=== PATIENT | female | born 1975 | race Caucasian/White ===

== ENCOUNTER → 2020-08-16 14:35 | Outpatient (BNVA) | payer OTHER, SELFPAY | PROVIDERS: Visit Provider Specialist | DX: G43.711 Chronic migraine without aura, intractable, with status migrainosus (principal); F17.210 Nicotine dependence, cigarettes, uncomplicated | CPT/HCPCS: 99204 ==

== ENCOUNTER → 2020-09-02 10:00 | Outpatient (BNVA) | payer OTHER, SELFPAY | PROVIDERS: Visit Provider Specialist | DX: G43.709 Chronic migraine without aura, not intractable, without status migrainosus (principal) | CPT/HCPCS: 64615; J0585 ==

== ENCOUNTER → 2020-11-25 12:04 | Outpatient (BNVA) | payer OTHER, SELFPAY | PROVIDERS: Visit Provider Specialist | DX: G43.709 Chronic migraine without aura, not intractable, without status migrainosus (principal) | CPT/HCPCS: 64615; J0585 ==

== ENCOUNTER → 2023-08-21 15:36 | Outpatient (BNVA) | payer OTHER, SELFPAY | PROVIDERS: Visit Provider Student in an Organized Health Care Education/Training Program | DX: S83.242A Other tear of medial meniscus, current injury, left knee, initial encounter; X58.XXXA Exposure to other specified factors, initial encounter | CPT/HCPCS: 73560; 73565 ==

== ENCOUNTER 2023-08-21 16:39 | Outpatient (CLI) | payer OTHER, SELFPAY | END 2023-08-21 16:40 | disposition home or self-care (01) | LOC: SPT 16:40 | PROVIDERS: Visit Provider Student in an Organized Health Care Education/Training Program | DX: Z46.89 Encounter for fitting and adjustment of other specified devices (principal); M25.562 Pain in left knee | CPT/HCPCS: 97760; L1812 ==

== ENCOUNTER 2023-10-17 09:36 | Day surgery (SDC) | payer OTHER, SELFPAY ==
[2023-10-17] VITALS (11 sets, daily range): BP systolic 107–148; BP diastolic 23–87; PULSE 58–95; RESP 16–18; TEMP 36.2–36.6; O2SAT 90–98; BMI 26.2
[2023-10-17] MEDS: sodium chloride 0.9% 1,000 ML 30 ML IV (10:29)
[2023-10-17] MEDS: scopolamine 1.5 Patch 1 PATCH TRANSDERMA (10:30)
[2023-10-17] MEDS: ketorolac 30 mg/mL INJ IVP (10:31)
[2023-10-17] MEDS: acetaminophen 1,000 MG/100 ML PIGGYBACK 400 MG IV (10:32)
--- NOTE | 2023-10-17 10:49 | W.PM.OPSFHP ---
Same Day Surgery H&P Indication for Procedure/HPI DATE OF PROCEDURE: October 17, 2023 CHIEF COMPLAINT/INDICATIONFOR SURGICAL PROCEDURE: Left knee medial meniscus tear, ACL degeneration and tearing PREOP DIAGNOSIS: Left knee medial meniscus tear, ACL degeneration and tearing PLANNED PROCEDURE: Operation Date: 10/17/23 11:10 Proposed Procedures p Knee Arthroscopy Knee Arthroscopy w/ Medial Menisectomy vs. repair(Left) - Scott Lowery DO s Debridement Lower Extremity possible ACL debridement(Left) - Scott Lowery DO Medications/Allergies* Home Medications Medication Instructions Recorded Confirmed Type albuterol sulfate 90 mcg/actuation 2 puff inhalation Q4H PRN sob 08/16/20 10/16/23 History aerosol inhaler alprazolam 0.5 mg tablet 0.5 mg PO DAILY PRN Anxiety 08/16/20 10/16/23 History clobetasol 0.05 % topical cream 1 applic topical BID 08/16/20 10/16/23 History estradiol 0.01% (0.1 mg/gram) 1 g vaginal DAILY 08/16/20 10/16/23 History vaginal cream (Estrace) fluoxetine 40 mg capsule (Prozac) 60 mg PO DAILY 08/16/20 10/16/23 History levothyroxine 100 mcg capsule 100 mcg PO DAILY 08/16/20 10/16/23 History tizanidine 4 mg capsule 4 mg PO Q6H PRN Pain 08/16/20 10/16/23 History metoprolol succinate 25 mg 25 mg PO DAILY 10/16/23 History tablet,extended release 24 hr Allergies/Adverse Reactions Allergy/AdvReac Type Severity Reaction Status Date / Time latex Allergy Mild ALGY-Hives Verified 10/16/23 13:59 mupirocin [From Bactroban] Allergy Mild Unknown Verified 10/16/23 13:59 Current Medications: Generic Name Dose Route Start Last Admin Trade Name Freq PRN Reason Stop Dose Admin Sodium Chloride 1,000 mls @ 30 mls/hr 10/17/23 09:45 10/17/23 10:29 Sodium Chloride 0.9% IV 10/18/23 09:44 30 mls/hr .Q24H JEZ Administration Pertinent History/Comorbid Conditions* Social History Smoking and tobacco/nicotine status: current every day tobacco/nicotine user (1/2 pack a day) Pertinent Exam Findings alert, oriented x 3, operative site marked and procedure specific exam findings Please refer to detailed orthopedic examination on 08/21/2023 listed below: Left Knee Exam: -Moderate palpable joint effusion -Medial joint space TTP -No significant TTP over lateral joint line -No TTP over lateral collateral ligament -TTP over medial collateral ligament -Stable Varus Valgus stress with firm end point medially and laterally -Negative anterior drawer -Pain with Honorio's but firm end point -Smooth hip ROM, No pain -TTP over retropatellar space but no significant crepitus Recommendations Surgery/Procedure today Other Plans: Plan to proceed to the OR today for left knee diagnostic and surgical arthroscopy with partial medial meniscectomy versus repair, possible ACL debridement. Patient understands the ins and outs procedure risk benefits complication alternatives surgery and through shared decision make elects proceed with surgical intervention. All questions answered at this time. Coding Level of Care Code Acute Code for Julianne Fwmazin
--- NOTE | 2023-10-17 11:27 | ANES.PREANE2 ---
Pre-Anesthetic Assessment Height/Weight: Height 5 ft 6.5 in Weight 165 lb Temp Pulse Resp BP Pulse Ox O2 Del Method 97.9 F 60 18 148/87 98 Room Air 10/17/23 10:07 10/17/23 10:07 10/17/23 10:07 10/17/23 10:30 10/17/23 10:07 10/17/23 10:15 Preop Diagnosis: Left knee medial meniscus tear, ACL degeneration and tearing Operation Date: 10/17/23 11:10 Proposed Procedures p Knee Arthroscopy Knee Arthroscopy w/ Medial Menisectomy vs. repair(Left) - Scott Lowery DO s Debridement Lower Extremity possible ACL debridement(Left) - Scott Lowery DO Last intake: Intake Last Liquid Date 10/16/23 Last Liquid Time 00:00 Last Solid Date 10/16/23 Last Solid Time 22:00 Social Tobacco and No alcohol Exam alert, oriented x 3, clear to auscultation bilaterally and regular rate & rhythm Airway Submandibular: within normal limits Cervical ROM: within normal limits Mallampati: Class II Dentition: full Anesthetic Plan ASA status: 2 Anesthesia: General Other: No prior issues with anesthesia NPO since midnight Hypertension, controlled on metoprolol Patient gets chronic migraines and receives Botox injections Hypothyroidism on levothyroxine METs greater than 4 Plan for general anesthesia with LMA Medications/Allergies Home Medications Medication Instructions Recorded Confirmed Last Taken Type albuterol sulfate 90 mcg/actuation 2 puff inhalation Q4H PRN sob 08/16/20 10/16/23 Unknown History aerosol inhaler alprazolam 0.5 mg tablet 0.5 mg PO DAILY PRN Anxiety 08/16/20 10/16/23 Unknown History clobetasol 0.05 % topical cream 1 applic topical BID 08/16/20 10/16/23 Unknown History estradiol 0.01% (0.1 mg/gram) 1 g vaginal DAILY 08/16/20 10/16/23 Unknown History vaginal cream (Estrace) fluoxetine 40 mg capsule (Prozac) 60 mg PO DAILY 08/16/20 10/16/23 10/16/23 History levothyroxine 100 mcg capsule 100 mcg PO DAILY 08/16/20 10/16/23 10/16/23 History tizanidine 4 mg capsule 4 mg PO Q6H PRN Pain 08/16/20 10/16/23 10/16/23 History Hinged Knee Brace #1 ea 08/21/23 10/11/23 Unknown Rx metoprolol succinate 25 mg 25 mg PO DAILY 10/16/23 10/16/23 History tablet,extended release 24 hr Allergies Allergy/AdvReac Type Severity Reaction Status Date / Time latex Allergy Mild ALGY-Hives Verified 10/16/23 13:59 mupirocin [From Bactroban] Allergy Mild Unknown Verified 10/16/23 13:59 Current Medications Generic Name Dose Route Start Last Admin Trade Name Freq PRN Reason Stop Dose Admin Sodium Chloride 1,000 mls @ 30 mls/hr 10/17/23 09:45 10/17/23 10:29 Sodium Chloride 0.9% IV 10/18/23 09:44 30 mls/hr .Q24H JEZ Administration PFSH Anesthesia Social History Smoking and tobacco/nicotine status: current every day tobacco/nicotine user (1/2 pack a day) Data Anesthesia Cardiac Studies: No Data to Display
[2023-10-17] MEDS: ceFAZolin 2,000 MG in sodium chloride 0.9% (plus) 50 ML 100 MG IV (13:52)
[2023-10-17] MEDS: lidocaine-epi 1% 20 mL INJ INJECTION (14:09)
--- NOTE | 2023-10-17 14:52 | P.BOP_ITS ---
Date of Procedure: 10/17/2023 Surgeon: Scott Lowery DO Manager Inspection(s): None Procedure(s) performed: Left knee diagnostic and surgical arthroscopy with partial medial meniscectomy Left knee diagnostic and surgical arthroscopy with extensive synovectomy (medial lateral patellofemoral) Left knee diagnostic and surgical arthroscopy with ACL debridement Left knee diagnostic and surgical arthroscopy with medial and lateral compartment chondroplasties Findings of the procedure(s): Patient was found to have noticeable chondromalacia throughout the knee grade 3 throughout the medial compartment as well as grade 2 3 laterally and grade 2 in the patellofemoral space. Had a m edial meniscus tear and underwent partial medial meniscectomy without issues or complications patient tolerated procedure as stated above. Taken to PACU in stable condition. Estimated blood loss: 1 mL Specimen(s) removed: None Post-operative diagnosis: Left knee complex medial meniscus tear, extensive synovitis, partial mucoid degenerative tearing, medial lateral patellofemoral compartment chondromalacia
--- NOTE | 2023-10-17 14:54 | P.OP_ITS ---
Operative Report Date of procedure: October 17, 2023 Surgeon: Scott Lowery DO Procedure: Preoperative diagnosis: Left knee medial meniscus tear, ACL degeneration and tearing Post-op diagnosis: Left knee complex medial meniscus tear, extensive synovitis, partial mucoid degenerative tearing, medial lateral patellofemoral compartment chondromalacia Procedure done: Left knee diagnostic and surgical arthroscopy with partial medial meniscectomy Left knee diagnostic and surgical arthroscopy with extensive synovectomy (medial lateral patellofemoral) Left knee diagnostic and surgical arthroscopy with ACL debridement Left knee diagnostic and surgical arthroscopy with medial and lateral compartment chondroplasties Surgeon: Scott Lowery DO Estimated blood loss: 1 mL Tourniquet: No tourniquet was used IV fluids: 700 mL Complications: None Findings: See operative report narrative Condition: stable Disposition: same day Brief History: Patient is a 48-year-old female with Left?knee?pain.? Patient has failed conservative treatment who has been worked up for Left??knee?pain in the outpatient setting. MRI findings consistent with tear of the medial meniscus. As well as mucoid degeneration of the ACL. Talked in the office about treatment options patient would like to proceed with a left knee diagnostic and surgical arthroscopy with partial medial meniscectomy versus repair with possible ACL debridement.? Patient understand the ins and outs of the procedure the risk benefits complication alternatives to treatment options.? Understanding risk of surgery they agree to proceed with surgical intervention.? Patient understand this may not provide patient with complete symptomatic relief of? pain as patient does have some underlying arthritis.? Understanding this and patient agree to proceed with surgical intervention all questions answered. This is an MRI done at [facility] on 08/06/2023 MRI of the left knee without contrast Demonstrates patient has impression: complex tear of the medial meniscus mucoid degeneration and/or sequelae of a sprain/partial thickness tear of the anterior cruciate ligament. Intact fibers distal correlate with clinical exam partial tear lateral collateral ligament with some residual fibers intact and identified as well as low-grade sprain of the medial collateral ligament patellar/quadriceps tendinosis lateral tilt of the patella Moderate to severe tricompartmental arthrosis answered described above Procedure: Patient seen and evaluated in the preoperative holding area.? Consent was reviewed and signed with patient.? Correct extremity was then marked.? Patient seen evaluated Anesthesia Department once cleared for surgery patient was taken back to the operative suite.? Patient was transported onto the OR table in supine position.? All bony prominences well-padded patient was appropriate secured to the bed.? Once appropriately anesthetized a nonsterile tourniquet was applied to the Left thigh.? The Left lower extremity was then prepped and draped in standard orthopedic fashion.? Final timeout performed.? Patient received appropriate preoperative antibiotics. Patient received local anesthetic of lidocaine with epinephrine into the joint as well as around the portal sites.? No tourniquet was inflated A standard 2 portal vertical incision diagnostic and surgical arthroscopy of the Left?knee?was performed in standard fashion.? Small stab incision made in the inferolateral portal introduced trocar and arthroscope into the suprapatellar pouch.? Suprapatellar pouch was subsequently visualized and found to have significant synovitis but no loose bodies.? Patient had noticeable significant inflamed infrapatellar fat pad and thickening hypertrophic within the patellofemoral compartment.? ?The medial gutter was free of loose bodies I then introduced the arthroscope into the medial compartment.? Within the medial compartment I then established my inferior medial working portal utilizing spinal needle outside in technique.? Once established I then visualized our articular cartilage of the medial compartment with a valgus stress.? Patient was found to have grade 3 chondromalacia throughout the medial compartment.? Next I inspected the meniscus.? With an arthroscopic probe was utilized to visual? all aspects of the meniscus.? Meniscal root was found to be intact.? Meniscus was found to be complex tear at the posterior horn medial meniscus.? I then subsequently introduced a basket forceps as well as arthroscopic shaver to perform a partial medial meniscectomy to stable meniscal tissue and then utilized a thermal wand to anneal the edges.? Next, I then performed a synovectomy of the medial compartment.? Given patient's chondromalacia there was areas of unstable articular cartilage and I subsequently performed a chondroplasty with arthroscopic shaver and thermal wand.? This completed medial compartment work. Next a introduced the arthroscope to the intercondylar notch.? PCL was intact. There was some degenerative mucoid degeneration of the lateral edge of the ACL but the gross fibers were intact as result I utilized an arthroscopic shaver just to perform a gentle ACL debridement with care not to destabilize residual tissue. Patient had significant thickening of the infrapatellar fat pad spanning into the medial and lateral compartments.? I then performed an extensive synovectomy with the arthroscopic shaver of the patellofemoral medial and lateral compartments as well as the intercondylar notch. Advance the?scope?into the retrocruciate space and no loose bodies were found. Next I introduced the arthroscope into the lateral compartment the lateral compartment was found to have mostly grade II chondromalacia however there was a focal area of grade III chondromalacia on the tibial plateau. Lateral meniscus was found to be intact.? The root was intact.? I did utilize an arthroscopic sha deborah and thermal wand to gently debride the focal grade 3 area to stable articular tissue. This completed my work of the lateral compartment and then performed a synovectomy of the lateral compartment.? Next of the arthroscope was placed into the lateral gutter and this was free of loose bodies.? Finally I reintroduced the arthroscope into the patellofemoral compartment.? The patellofemoral was found to have grade 2 chondromalacia of the patellofemoral compartment.? At this point I utilized arthroscopic shaver as well as thermal wand to perform extensive synovectomy of the patellofemoral compartment. This completed my work of the patellofemoral space.? I then switch my portal sites to the medial working portal.? Completed the rest of my synovectomy and the rest of my examination arthroscopy was normal. All fluid was suctioned from the joint.? ?All instruments were withdrawn.? Portal sites were closed with interrupted nylon suture.? portal sites were then covered with with Xeroform 4 x 4's ABD Curlex and Rodolfo wrap.? Patient was then subsequently awakened from anesthesia and taken to PACU in stable condition. Disposition: Patient taken to PACU in stable condition recovering well.? Will receive appropriate discharge structure as well as pain medication postoperatively as well as? DVT prophylaxis.we will have patient follow-up with orthopedics in the office in 2 weeks.? We will weightbearing as tolerated to the Left lower extremity. Patient will be given crutches as needed patient understands and agrees with current plan.? All questions answered.
--- NOTE | 2023-10-17 15:50 | ANE.PACU2 ---
Inpatient post-anesthesia follow up: Airway intact: Yes Vital signs: Temperature 97.3 F Pulse Rate 68 Respiratory Rate 18 Blood Pressure 130/59 Pulse Oximetry 97 Oxygen Delivery Me thod Room Air Oxygen Flow Rate Fraction of Inspir ed Oxygen Hydration adequate: Yes Nausea and vomiting: No Pain level: 1 Mental status: Baseline
== END 2023-10-17 15:50 | disposition home or self-care (01) ==
PROVIDERS: PCP Nurse Practitioner Family; Visit Provider Student in an Organized Health Care Education/Training Program
PROC: (CPT 29870; principal; 2023-10-17 11:10)
PROC: (CPT 29876; 2023-10-17 11:10)
PROC: (CPT 29876; 2023-10-17 11:10)
PROC: (CPT 29876; 2023-10-17 11:10)
DX: S83.232A Complex tear of medial meniscus, current injury, left knee, initial encounter (principal); X58.XXXA Exposure to other specified factors, initial encounter; M65.9 Synovitis and tenosynovitis, unspecified; M22.42 Chondromalacia patellae, left knee; I10 Essential (primary) hypertension; E03.9 Hypothyroidism, unspecified; F17.200 Nicotine dependence, unspecified, uncomplicated
CPT/HCPCS: 29876; 29881; J0131; J0690; J1100; J1885; J2250; J2405; J2704; J3010; J7030

== ENCOUNTER → 2024-03-06 10:42 | Outpatient (BNVA) | payer OTHER, SELFPAY | PROVIDERS: PCP Nurse Practitioner Family; Visit Provider Podiatrist Foot & Ankle Surgery | DX: M25.571 Pain in right ankle and joints of right foot (principal); M79.671 Pain in right foot; S96.911A Strain of unspecified muscle and tendon at ankle and foot level, right foot, initial encounter; M25.371 Other instability, right ankle; X50.9XXA Other and unspecified overexertion or strenuous movements or postures, initial encounter | CPT/HCPCS: 73610; 73630 ==

== ENCOUNTER 2024-03-21 10:51 | Outpatient (CLI) | payer OTHER, SELFPAY ==
--- NOTE | 2024-03-21 11:00 | MRR_ITS ---
PROCEDURE INFORMATION: Exam: MR Right Lower Extremity Joint Without Contrast; Ankle Exam date and time: 03/21/2024 11:09 AM Age: 48 years old Clinical indication: Right; Patient HX: RT ankle pain laterally. Rolled ankle several times. Pain x 1 year; Additional info: Tendon tear of right ankle TECHNIQUE: Imaging protocol: Magnetic resonance imaging of the right lower extremity without contrast. Exam focused on the ankle. COMPARISON: CR XR ankle RT min 3V* [id number] 03/06/2024 10:49 AM FINDINGS: Bones/joints: Normal osseous alignment. No acute fracture. Moderate patchy bone marrow edema and mild subcortical cystic changes in the lateral talar dome is noted, with adjacent moderate bone marrow edema and benign-appearing mild subcortical cystic changes in the medial aspect of the distal fibula. A small focus of mild bone marrow edema and cystic changes in the medial talar dome is noted with an overall measurement of approximately 0.3 x 0.6 x 0.4 cm. LIGAMENTS: Distal tibiofibular syndesmosis: Unremarkable. No tear. Anterior talofibular ligament: Mild abnormal increased signal intensity is identified in the anterior talofibular ligament without evidence of tear. Posterior talofibular ligament: Mild abnormal increased signal intensity within the posterior talofibular ligament is noted without evidence of a tear. Calcaneofibular ligament: Unremarkable. No tear. Deltoid ligament complex: Unremarkable. No tear. TENDONS: Flexor tendons of foot: Unremarkable as visualized. Tibialis posterior tendon: Mild abnormal fluid in the tibialis posterior tendon sheath is present. Peroneal tendons: Unremarkable as visualized. Extensor tendons of foot: Unremarkable as visualized. Tibialis anterior tendon: Unremarkable as visualized. Achilles tendon: Unremarkable as visualized. Tarsal canal (Sinus tarsi): Unremarkable. Normal signal of the fat. Tarsal tunnel: Unremarkable. Soft tissues: Unremarkable. Plantar fascia: Plantar fascia is unremarkable. MR/MR ankle RT wo con* [id number] IMPRESSION: 1. Mild sprain of the anterior and posterior talofibular ligaments. 2. Mild subcortical cystic changes and bone marrow edema in the talar dome the greatest laterally, with adjacent subcortical cystic changes and bone marrow edema in the fibula. These findings can be related to primary osteoarthritic changes. Bone contusions of the lateral talar dome and distal fibula are not excluded. No MRI evidence of an unstable osteochondral lesion. 3. Mild tibialis posterior tenosynovitis.
== END 2024-03-21 10:52 | disposition home or self-care (01) ==
LOC: RAD 10:53
PROVIDERS: PCP Nurse Practitioner Family; Visit Provider Podiatrist Foot & Ankle Surgery
DX: M25.571 Pain in right ankle and joints of right foot (principal); S93.491A Sprain of other ligament of right ankle, initial encounter; X58.XXXA Exposure to other specified factors, initial encounter; R93.6 Abnormal findings on diagnostic imaging of limbs; M65.871 Other synovitis and tenosynovitis, right ankle and foot; R93.7 Abnormal findings on diagnostic imaging of other parts of musculoskeletal system
CPT/HCPCS: 73721

== ENCOUNTER → 2024-04-23 10:54 | Outpatient (BNVA) | payer OTHER, SELFPAY | PROVIDERS: PCP Nurse Practitioner Family; Visit Provider Podiatrist Foot & Ankle Surgery | DX: R93.7 Abnormal findings on diagnostic imaging of other parts of musculoskeletal system (principal) | CPT/HCPCS: 36415; 85007; 85027; 85651; 86140; 86160; 86162; 86200; 86235; 86255; 86376; 86431 ==

== ENCOUNTER 2024-04-23 11:21 | Outpatient (CLI) | payer OTHER, SELFPAY | END 2024-04-23 11:22 | disposition home or self-care (01) | LOC: SPT 11:21 | PROVIDERS: PCP Nurse Practitioner Family; Visit Provider Podiatrist Foot & Ankle Surgery | DX: Z46.89 Encounter for fitting and adjustment of other specified devices (principal); S86.919D Strain of unspecified muscle(s) and tendon(s) at lower leg level, unspecified leg, subsequent encounter; M25.371 Other instability, right ankle; X58.XXXD Exposure to other specified factors, subsequent encounter | CPT/HCPCS: L1902 ==

== ENCOUNTER → 2024-10-15 14:04 | Outpatient (BNVA) | payer OTHER, SELFPAY | PROVIDERS: PCP Nurse Practitioner Family; Visit Provider Physician Assistant | DX: S83.242A Other tear of medial meniscus, current injury, left knee, initial encounter (principal); Z98.890 Other specified postprocedural states; M94.261 Chondromalacia, right knee; X58.XXXA Exposure to other specified factors, initial encounter | CPT/HCPCS: 73560; 73565 ==

== ENCOUNTER → 2024-12-02 10:55 | Outpatient (BNVA) | payer OTHER, SELFPAY | PROVIDERS: PCP Nurse Practitioner Family; Visit Provider Physician Assistant | DX: M17.12 Unilateral primary osteoarthritis, left knee (principal); M94.262 Chondromalacia, left knee; Z98.890 Other specified postprocedural states | CPT/HCPCS: 73560; 73565 ==

== ENCOUNTER 2024-12-10 10:10 | Outpatient (CLI) | payer OTHER, SELFPAY ==
--- NOTE | 2024-12-10 10:15 | CT_ITS ---
WS: [id number] CT LEFT knee, noncontrast HISTORY: surgical planning TECHNIQUE: Protocol for [facility] total knee replacement has been obtained. This includes axial imaging through the LEFT hip, LEFT knee and LEFT ankle. DLP: 965.98 mGy.cm COMPARISON: Radiograph 12/02/2024 LEFT hip: Small amount of degenerative air in the SI joints. No fractures or dislocation. No soft tissue mass. There are a few sigmoid diverticula. LEFT knee: Very mild tricompartment joint space narrowing with small marginal osteophytes. No bone destruction. Moderate suprapatellar joint effusion. LEFT ankle: Normal alignment. CT/CT knee LT [facility] [id number] IMPRESSION: CT imaging provided for [facility] robotic total knee replacement.
== END 2024-12-10 10:11 | disposition home or self-care (01) ==
LOC: RAD 10:11
PROVIDERS: PCP Nurse Practitioner Family; Visit Provider Student in an Organized Health Care Education/Training Program
DX: M47.898 Other spondylosis, sacral and sacrococcygeal region (principal); Z01.818 Encounter for other preprocedural examination; F17.210 Nicotine dependence, cigarettes, uncomplicated
CPT/HCPCS: 73700; 80053; 81000; 85025

== ENCOUNTER 2024-12-29 13:16 | Observation (INO) | payer OTHER, SELFPAY ==
[2024-12-29] VITALS (20 sets, daily range): BP systolic 113–154; BP diastolic 59–88; PULSE 54–73; RESP 12–24; TEMP 36.2–36.8; O2SAT 93–100; BMI 26.6
--- NOTE | 2024-12-29 07:07 | P.HPUD_ITS ---
Surgery/Procedure H&P Update DATE OF PROCEDURE: December 29, 2024 DATE H&P PERFORMED: 12/02/24 H&P UPDATE INFORMATION: I have reviewed H&P completed within last 30 days, I have examined patient prior to procedure and No changes to prior documentation CHANGES TO PREVIOUS DOCUMENTATION: Patient at this point in time has failed to respond to conservative treatment she has left knee DJD at this point in time she is cleared the preoperative c learance process been medically optimized no change in her health since the last visit no new complaints at this time. No prior injections in the last 90 days into the joint. Patient understands the ins and outs procedure risk benefits complication alternative surgical nonsurgical treatment options. Understanding risk of surgery patient like to proceed with surgical invention. All questions answered at this time. PREOP DIAGNOSIS: Left knee DJD PRIMARY INDICATION FOR PROCEDURE: Left knee DJD PLANNED PROCEDURE: Operation Date: 12/29/24 09:20 Proposed Procedures p Arturo Robot Total Knee Arthroplasty(Left) - Scott Lowery DO
--- NOTE | 2024-12-29 07:11 | XR_ITS ---
WS: [id number] Left knee, AP and lateral views, 12/29/2024 Clinical Data: post L TKA Comparison: Left knee, AP both knees, 12/02/2024 Findings: There is a left knee arthroplasty. The components are in good position. There is postoperative air in the knee joint. Anterior surgical rona are seen. XR/XR knee LT 1-2V [id number] Impression: Left knee arthroplasty.
[2024-12-29] MEDS: acetaminophen 1,000 MG/100 ML PIGGYBACK 400 MG IV ×2 (07:25→15:58)
[2024-12-29 07:32] LABS: Hematocrit 42.5 % (36-47); Hemoglobin 14.10 g/dL (11.27-16.99); Mean Corpuscular HGB Conc 33.2 g/dL (30-55); Mean Corpuscular Hemoglobin 32.9 pg (27-33); Mean Corpuscular Volume 99.1 fl (85-98); Nucleated Red Blood Cells % 0 %; Platelet Count 266 10^3/cmm (157-399); Red Blood Count 4.29 10^6/uL (3.85-5.65); White Blood Count 10.45 10^3/uL (3.29-11.43)
[2024-12-29 07:51] LABS: Blood Urea Nitrogen 7 mg/dL (6-20); Calcium 9.1 mg/dL (8.5-10.5); Carbon Dioxide 23 mmol/L (22-29); Chloride 103 mmol/L (98-107); Creatinine Clr Calc Pharmacy 117.3092; Glucose 94 mg/dL (65-115); Osmolality Calculated 284 mOsm/kg (285-295); Sodium 138 mmol/L (136-145)
[2024-12-29 08:00] LABS: Anion Gap 16.2 (5-19); Potassium 4.2 mmol/L (3.5-5.1)
--- NOTE | 2024-12-29 08:11 | ANES.PREANE2 ---
Pre-Anesthetic Assessment Height/Weight: Height 5 ft 6 in Weight 165 lb Temp Pulse Resp BP Pulse Ox O2 Del Method 97.6 F 56 L 18 123/76 99 Room Air 12/29/24 07:34 12/29/24 07:34 12/29/24 07:34 12/29/24 07:34 12/29/24 07:34 12/29/24 07:34 Preop Diagnosis: Left knee DJD Operation Date: 12/29/24 09:20 Proposed Procedures p Arturo Robot Total Knee Arthroplasty(Left) - Scott Lowery, DO Was Beta Lakshmi taken within 24 hours: Yes Was Clonidine taken within 24 hours: N/A Last intake: Intake Last Liquid Date 12/28/24 Last Liquid Time 22:30 Last Solid Date 12/28/24 Last Solid Time 19:00 Social Tobacco and No alcohol Exam alert, oriented x 3, clear to auscultation bilaterally and regular rate & rhythm Airway Submandibular: within normal limits Cervical ROM: within normal limits Mallampati: Class III Dentition: full Anesthetic Plan ASA status: 3 Anesthesia: MAC and Regional (specify below) Other: Patient states that during prior bowel resection surgery they gave her too much narcotics and almost had a Narcan in her postop NPO since yesterday evening History of hypertension on metoprolol Hypothyroidism on Synthroid States ambulation is limited only secondary to knee pain, denies any SOB or chest pain Labs reviewed from 12/29/2024 and acceptable for procedure Type and screen performed Plan for spinal anesthetic with peripheral nerve block Medications/Allergies Home Medications ?Medication ?Instructions ?Recorded ?Confirmed ?Last Taken ?Type alprazolam 0.5 mg tablet 0.5 mg PO DAILY PRN Anxiety 08/16/20 12/29/24 Unknown History fluoxetine 40 mg capsule (Prozac) 60 mg PO DAILY 08/16/20 12/25/24 12/27/24 History tizanidine 4 mg capsule 4 mg PO Q6H PRN Pain 08/16/20 12/25/24 12/28/24 History levothyroxine 125 mcg tablet 100 mcg PO QDAY 05/02/24 12/25/24 12/25/24 History onabotulinumtoxinA 100 unit 155 unit IM Q90D #2 ea 08/04/24 12/25/24 Unknown Rx solution for injection (Botox) metoprolol succinate 25 mg 50 mg PO DAILY 12/10/24 12/25/24 12/28/24 History tablet,extended release 24 hr milk thistle 150 mg capsule 150 mg PO BID 12/10/24 12/29/24 Unknown History omega 1-ipi-xxn-fish oil 60 mg-90 1 cap PO DAILY 12/10/24 12/29/24 Unknown History mg-500 mg capsule (Fish Oil) tramadol 50 mg tablet 50 mg PO Q6H PRN pain 5 days #20 12/17/24 12/25/24 12/28/24 Rx tabs Allergies Allergy/AdvReac Type Severity Reaction Status Date / Time latex Allergy Mild ALGY-Hives Verified 12/25/24 11:26 mupirocin (From Bactroban) Allergy Mild Unknown Verified 12/25/24 11:26 Quinoa Allergy Unknown ALGY-Hives Uncoded 12/25/24 11:26 Current Medications Generic Name Dose Route Start Last Admin Trade Name Freq PRN Reason Stop Dose Admin Sodium Chloride 1,000 mls @ 30 mls/hr 12/29/24 07:00 12/29/24 07:23 Sodium Chloride 0.9% IV 12/30/24 06:59 30 mls/hr .Q24H JEZ Administration PFSH Anesthesia Social History Smoking and tobacco/nicotine status: current every day tobacco/nicotine user Data Anesthesia 12/29/24 07:15 12/29/24 07:15 Short CBC 12/29/24 Range/Units 07:15 WBC 10.45 (3.29-11.43) 10^3/uL Hgb 14.10 (11.27-16.99) g/dL Hct 42.5 (36-47) % MCV 99.1 H (85-98) fl Plt Count 266 (157-399) 10^3/cmm Neut % (Auto) 60.7 % Neut # (Auto) 6.35 (1.8-7.7) 10^3/uL BMP 12/29/24 07:15 Sodium 138 Potassium 4.2 Chloride 103 Carbon Dioxide 23 BUN 7 Creatinine 0.6 Glucose 94 Calcium 9.1
--- NOTE | 2024-12-29 08:30 | ANE.PACU2 ---
Inpatient post-anesthesia follow up: Airway intact: Yes Vital signs: Temperature 97.5 F Pulse Rate 54 Respiratory Rate 18 Blood Pressure 131/59 Pulse Oximetry 99 Oxygen Delivery Me thod Room Air Oxygen Flow Rate 6 Fraction of Inspir ed Oxygen Hydration adequate: Yes Nausea and vomiting: No Pain level: 1 Mental status: Baseline
[2024-12-29] MEDS: ceFAZolin 2,000 MG in sodium chloride 0.9% (plus) 50 ML 100 MG IV ×2 (08:36→15:03)
[2024-12-29] MEDS: tranexamic acid 1,000 mg/10mL SDV 1000 MG IV (09:08)
[2024-12-29] MEDS: tranexamic acid 1,000 mg/10mL SDV 1000 MG XX (09:25)
[2024-12-29] MEDS: ROPivacaine 0.2% Premix 100 mL 200 MG INTRA-ARTI (09:26)
--- NOTE | 2024-12-29 10:45 | W.PM.BPON ---
Date of Procedure: 12/29/2024 Surgeon: Scott Lowery DO Plant Operations Coordinator(s): Velasquez Lowery PA-C Procedure(s) performed: Left total knee arthroplasty?Arturo robotic assisted Findings of the procedure(s): Patient underwent procedure as planned without issues or complications taken recovery in stable condition Estimated blood loss: 25 mL Specimen(s) removed: Tibia femur and patellar bone cuts removed Post-operative diagnosis: Left knee DJD
--- NOTE | 2024-12-29 10:46 | PM.OP ---
Operative Report Date of procedure: December 29, 2024 Surgeon: Scott Lowery DO [place] Consultant: Velasquez Lowery PA-C: PA was necessary for assistance in this case with leg positioning retraction and protection of neurovascular structures as well as assistance in implantation wound closure and dressing application. Procedure: Preoperative diagnosis: Left knee degenerative joint disease Post-op diagnosis: Same Procedure done: Left total knee arthroplasty, cemented?robotic assisted Arturo Implants: [place] triathlon size 2 femur CR cemented?Left [place] triathlon size? 2 tibia universal baseplate cemented [place] triathlon symmetric patella size 27 mm [place] triathlon polyethylene 10mm Surgeon: Scott Lowery DO Estimated blood?loss: 25 mL Tourniquet 64mins IV fluids: 1200 mL Urine output: 300 mL Complications: None Condition: stable Disposition: floor Brief History: Patient is a 49-year-old female with with chronic?Left knee degenerative joint disease.? Patient has been worked up in the outpatient setting in the orthopedic office at this point time through shared decision making given? [id number] arthritis as well as failed conservative treatment, and pt would?like to proceed with a?Left total knee arthroplasty.? Through shared decision making elected to proceed with surgical intervention for?Left total knee arthroplasty with Arturo robotic assisted.? We talked about continued conservative treatment and surgical intervention as far as the risk benefits complications alternatives surgical and nonsurgical treatment options.? At this point time understanding patient risks with surgery pt agrees to proceed with surgical intervention.? Once again? risk with surgery include but are not?limited to make it better make it worse blood clot, heart attack, stroke, on the table, infection, injury to nerves or vessels, persistent pain, arthrofibrosis, implant failure.? Understanding these risks patient agrees to proceed with surgical intervention consent was obtained in the preoperative holding area.? All questions answered. Procedure: Patient was seen and evaluated in the preoperative holding area.? Consent was reviewed and signed with patient with plan for?Left total knee arthroplasty.? All questions answered.? Correct extremity marked.? Patient seen and evaluated by the anesthesia department and once cleared for surgery was taken back to the operative suite.? Patient was placed into a supine position on the OR table.? All bony prominences were well-padded.? Patient was appropriately secured to the bed.? Patient underwent anesthesia per the anesthesia department.? Patient received anesthesia and? Thibodeaux catheter was placed.? A nonsterile tourniquet was applied to the?Left thigh.? At this point in time a final timeout performed.? Patient received appropriate preoperative antibiotics and TXA. Next the?Left?lower extremity was then prepped and draped in standard orthopedic fashion. Esmarch tourniquet was used exsanguinate the?Left?lower extremity.? Tourniquet was insufflated to 250 mmHg. A standard anterior incision was made over midline of the knee.? Sharp scalpel excision through skin and subcutaneous tissue full-thickness skin flaps were made.? Fascia was elevated off of the extensor retinaculum was stable with medial parapatellar arthrotomy was then made.? The performed standard sequential releases..? Immediately on entry into the joint patient was found to have severe eburnated bone and tricompartmental arthritic changes noted.? With significant osteophyte formation.? Next the the patella was then stuffed and the knee was then flexed.?? Chanelle was placed superiorly around the anterior aspect of the femur this was freed of synovium and I subsequently then placed by 2 femur pins to establish my femur arrays for the Arturo robot.? These were then placed bicortically and? femur array was then appropriately secured with appropriate visualization.? Next attention was turned towards the tibial rays.? These were then drilled sequentially bicortically in parallel fashion and intraincisional.? I then placed my guide as well as my tibial array on in place.? This was appropriately secured and had excellent visualization with the Arturo robot.? Next the tibial checkpoint as well as femur checkpoint were then placed.? At this point time I then subsequently established my head center as well as my medial?lateral malleoli as well as my checkpoints.? Next utilizing standard Arturo technology I then mapped out the appropriate points and confirmation points around the femur as well as the tibia in standard fashion.? Once this was then done I then removed all osteophytes in preparation for dynamic testing.? All osteophytes were removed as well as I removed the ACL and the PCL was excised due to its significant tearing and degeneration noted.? At this point time the knee was brought into full extension and we performed our standard evaluation of our gap balancing stressing his?ligaments and extension as well as flexion appropriate adjustments were made to have appropriate gap balancing in both flexion and extension.? This plan for final cuts to correct patient's deformity within ligamentous tolerances.? We get a preoperative plan evaluating our implants which was a size 2 femur and a size 2 tibia.? Next we brought in the Arturo robot and sequentially made our femur cuts.? All excess bony cuts were then removed.? Finally we made our tibial cut.? Once this was done a standard PCL retractor was then placed into this position I excised the medial and?lateral meniscus.? The tibial cut was then subsequently removed all excess bony debris was removed.? I then utilized a?lamina utility sales representative and remove the posterior osteophytes.? At this point time sized the tibia and confirmed this was a size 2.? I utilized our blunt probe to establish rotation of tibial implant.? Once this was done I then placed my tibia size 2 trial in appropriate position and then subsequently placed tibial pins to hold this into place and trialed up to a size 10mm poly as well as a 2 size femur which was appropriately impacted in place knee was then subsequently brought into extension. Trials were then assessed,? this was stable with varus valgus stress in extension as well as had symmetrical translation when brought into flexion demonstrating symmetrical gaps. I had excellent balance gaps in flexion and extension with varus and valgus stresses.? At this point I was satisfied with these implants these were then verified and opened on the back table size 2 tibia, size 2 femur,? size 10 mm polythickness.? We did confirm appropriate gap balancing and stresses as well as alignment utilizing? Arturo and were satisfied with this plan.? ?At this point time with my trials in place I then towel clip the patella everted this made appropriate measurements subsequently utilizing freehand technique performed by patellar resurfacing this was confirmed to be appropriate resection and subsequently sized to be a 27 mm symmetric.? My drill peg guides were then clamped and appropriate position and appropriate position in the patella for appropriate tracking and parallel with the joint.? Pegs were drilled trial implant was placed and the knee was then subsequently ranged and found to have excellent patellar tracking.? Femur pegs were then drilled.? All checkpoints as well as guidepins and arrays were removed and appropriate counts made. Satisfied with our tibial placement rotation I then utilized the keel punch and prepped the tibia.? At this point time all of our trial implants were removed.? ? The wound bed? was thoroughly irrigated and dried and prepped for cementation.? Cement was mixed on the back table.? Once cement was ready this was then covered onto the tibia and the tibial baseplate was then impacted and all excess cement was removed.? Next the polyethylene was then impacted into place on the tibial baseplate.? Next cement was placed onto the femur as well as under the femur implants and impacted in to place and all excess cement was extruded and removed.? Knee was taken into full extension? to clear all excess cement was removed.? Warm saline was placed over the joint.? I then towel clip patella and dried for cementation. cemented the patella into place.? This was all clamped and the cement was allowed to cure.? Thorough irrigation performed with pulse?lavage.? I then placed my periarticular injection while the cement was curing.? Once cured the knee was taken through range of motion and had excellent stability and gaps were balanced in flexion and extension.? Tourniquet was then deflated. hemostasis satisfactory with electrocautery.? Next I then subsequently closed the capsule with Ethibond suture as well as a running strata fix suture.? Knee was then taken through range of motion 30 times.? Next the skin was then closed in?layered fashion of running stratifix sutures of deep and subcutenous tissue and skin.? ?closed in flexion rona over skin, Incision was covered with Silverlon, with ABDs soft roll and Rodolfo wrap.? Patient was then awakened from anesthesia and taken to PACU in stable condition. Disposition: Patient taken to PACU in stable condition will be admitted to the floor for pain control PT/OT weight-bear as tolerated?Left?lower extremity dressing changes as needed, DVT prophylaxis. Pain control. Patient will receive appropriate postoperative antibiotics. patient will be seen today by the internal medicine team for medical management.? Patient will follow up with the office in 2 weeks.? Patient understands agrees with current plan.? All questions answered
--- NOTE | 2024-12-29 11:07 | PM.PACU ---
PACU note Narrative: Patient is a 49-year-old female that just underwent a left total knee arthroplasty. Pt transferred to PACU in stable condition. Dressing is dry. pt is awake and alert. Unable to perform further assessment of sensation or motor in his left leg due to residual anesthesia. Distal pulses are palpable toes are warm and well-perfused. Cap refill is normal and under 2 seconds. Sensation to foot is intact. Pain is controlled. Exam: awake Disposition: admitted
[2024-12-29] MEDS: chlorhexidine gluconate 0.12% Btl 473 mL 30 ML MUCOUS MEM ×2 (14:42→16:46)
[2024-12-29] MEDS: oxyCODONE 5 mg IR Tab/Cap PO ×2 (15:02→19:07)
[2024-12-29] MEDS: tranexamic acid 1,000 MG/100 ML PREMIX 600 MG IV (16:45)
[2024-12-29] MEDS: calcium carb-vit d 600mg/400unit 1 Tablet 1 EACH PO (16:46)
--- NOTE | 2024-12-29 19:37 | PM.CONSULT ---
Providers/Reason For Consult Consulting Physician/Specialty*: GENI FRANKEL DO--patient seen on consultation before 12 midnight at 8 PM Reason for Consult*: Medical management of high blood pressure Requesting Physician: Dr. Scott Lowery Attending Physician: Scott Lowery DO Primary Care Provider: Thaddeus Alcantar RNCS History of Present Illness History of Present Illness Jud Ni is a 49 year old female with medical history significant for hypertension on metoprolol succinate and history of chondromalacia of the knee. Patient had been having problem with the knee and had undergone arthroscopy in the recent time of the left knee. That did not work very well patient then came to the orthopedic service to have a total knee replacement of the left knee patient verbalized no pain at this time postoperatively. I have seen and evaluated patient blood pressure is also doing okay. At this time of my evaluation blood pressure is 113/59 respiration 16 pulse is 66 and temperature afebrile at 98.2 ?F. Pulse oximetry on room air is 97%. Patient is very jovial with cheerful disposition Review of Systems Narrative: System review upon tenogram reviewed was noted to be only remarkable for musculoskeletal with total knee replacement of the left otherwise unremarkable. Medications/Allergies Home Medications ?Medication ?Instructions ?Recorded ?Confirmed ?Last Taken ?Type alprazolam 0.5 mg tablet 0.5 mg PO DAILY PRN Anxiety 08/16/20 12/29/24 Unknown History fluoxetine 40 mg capsule (Prozac) 60 mg PO DAILY 08/16/20 12/25/24 12/27/24 History tizanidine 4 mg capsule 4 mg PO Q6H PRN Pain 08/16/20 12/25/24 12/28/24 History levothyroxine 125 mcg tablet 100 mcg PO QDAY 05/02/24 12/25/24 12/25/24 History onabotulinumtoxinA 100 unit 155 unit IM Q90D #2 ea 08/04/24 12/25/24 Unknown Rx solution for injection (Botox) metoprolol succinate 25 mg 50 mg PO DAILY 12/10/24 12/25/24 12/28/24 History tablet,extended release 24 hr milk thistle 150 mg capsule 150 mg PO BID 12/10/24 12/29/24 Unknown History omega 9-iks-rhw-fish oil 60 mg-90 1 cap PO DAILY 12/10/24 12/29/24 Unknown History mg-500 mg capsule (Fish Oil) tramadol 50 mg tablet 50 mg PO Q6H PRN pain 5 days #20 12/17/24 12/25/24 12/28/24 Rx tabs Allergies Allergy/AdvReac Type Severity Reaction Status Date / Time latex Allergy Mild ALGY-Hives Verified 12/25/24 11:26 mupirocin (From Bactroban) Allergy Mild Unknown Verified 12/25/24 11:26 Quinoa Allergy Unknown ALGY-Hives Uncoded 12/25/24 11:26 Current Medications Generic Name Dose Route Start Last Admin Trade Name Freq PRN Reason Stop Dose Admin Calcium Carbonate 1 each 12/29/24 17:00 12/29/24 16:46 Calcium Carb-Vit D 600mg/400unit 1 Tablet PO 1 each BID JEZ Administration Chlorhexidine Gluconate 30 ml 12/29/24 13:16 12/29/24 16:46 Chlorhexidine Gluconate 0.12% Btl 473 Ml MUCOUS MEM 30 ml QID JEZ Administration Docusate Sodium 100 mg 12/29/24 17:00 12/29/24 16:46 Docusate Sodium 100 Mg Capsule PO 100 mg BID JEZ Administration Acetaminophen 1,000 mg in 100 mls @ 400 mls/hr 12/29/24 13:16 12/29/24 16:13 Acetaminophen IV 12/30/24 05:30 Infused Q8H JEZ Infusion Cefazolin Sodium 2,000 mg/ 50 mls @ 100 mls/hr 12/29/24 13:16 12/29/24 15:33 Sodium Chloride IV 12/30/24 05:45 Infused Q8H JEZ Infusion Protocol Lactated Ringer's 1,000 mls @ 100 mls/hr 12/29/24 13:16 12/29/24 15:59 Lactated Ringers IV 100 mls/hr .Q10H JEZ Administration Ketorolac Tromethamine 15 mg 12/29/24 13:16 12/29/24 16:57 Ketorolac 30 Mg/Ml Inj IVP 15 mg Q6H PRN Administration MODERATE TO SEVERE PAIN Lanolin 1 applic 12/29/24 11:55 12/29/24 15:08 Lanolin Oint 7 Gm TOPICAL 1 applic PRN PRN Administration DRYNESS Oxycodone HCl 5 mg 12/29/24 13:16 12/29/24 19:07 Oxycodone 5 Mg Ir Tab/Cap PO 5 mg Q4H PRN Administration MODERATE PAIN Polysaccharide Iron Complex 150 mg 12/29/24 13:16 12/29/24 15:02 Iron Polysaccharide Complex 150 Mg Capsule PO 150 mg BIDWM JEZ Administration PFSH Acute PFSH: Social History Smoking and tobacco/nicotine status: current every day tobacco/nicotine user Vitals/I&O/Wt Last Vital Signs Temp 98.2 F 12/29/24 18:40 Pulse 66 12/29/24 18:40 Resp 16 12/29/24 19:07 BP 113/59 12/29/24 18:40 Pulse Ox 97 12/29/24 18:40 O2 Del Method Room Air 12/29/24 18:40 O2 Flow Rate 6 12/29/24 11:03 12/29/24 12/29/24 12/29/24 06:59 14:59 22:59 Intake Total 1350 / 1350 150 / 1500 Output Total 725 / 725 650 / 1375 Balance 625 / 625 -500 / 125 Weight last 48 hrs Weight 74.843 kg Weight 74.843 kg Physical Exam Narrative: Generally patient is well doing okay with little to no pain however did have spinal anesthesia patient anesthesia is still in her and working well and she is experiencing little or no pain. HEENT normocephalic/atraumatic neck neck is supple cardiovascular heart rate is regular lungs are pretty much clear abdomen soft nontender nondistended unremarkable extremities are intact no edema has good pulses neurology has no focality lab studies lab studies reviewed and noted. Urinary Catheter Management: Thibodeaux: Cath Placed During This Visit: yes, but has since been removed by the nurse Reason for Continuing Indwelling Catheter: Decision to DC Catheter Urinary Catheter Date of Insertion: 12/29/24 Urinary Catheter Time of Insertion: 08:57 Date Urinary Catheter Removed: 12/29/24 Time Urinary Catheter Discontinued: 19:12 Data 12/29/24 07:15 12/29/24 07:15 A&P Assessment and plan 1. Chondromalacia of knee: 2. Status post arthroscopy of left knee: 3. Status post total knee replacement, left: 4. History of hypertension: Plan: Status post left total knee - Patient with history of chondral malacia of the knee, had total knee replacement today of the left knee. - Patient feels good use spinal anesthesia today and patient is already walking around going to the bathroom with a walker. - Patient at this time denies any pain - Patient anticipate pain coming back tomorrow when the anesthesia had worn out - Patient has ice pack to the surgical knee - Patient is doing some activities with walking with a walker with simple tasks of going to the bathroom History of blood pressure -Patient is normotensive -Continue current care GI and DVT prophylaxis in place PDMP PDMP Reviewed: Last Reviewed 12/29/24 20:53 by Geni Frankel MD Coding Level of Care Code 03769 Diagnoses Chondromalacia of knee M94.269 Status post arthroscopy of left knee Z98.890 Status post total knee replacement, left Z96.652 History of hypertension Z86.79 Time Spent (min) 50
[2024-12-30] MEDS: ceFAZolin 2,000 MG in sodium chloride 0.9% (plus) 50 ML 100 MG IV (00:38)
[2024-12-30 00:53] VITALS: RESP 17; O2SAT 97
[2024-12-30] MEDS: oxyCODONE 5 mg IR Tab/Cap PO ×3 (00:53→12:47)
[2024-12-30] MEDS: acetaminophen 1,000 MG/100 ML PIGGYBACK 400 MG IV (01:13)
[2024-12-30 04:12] VITALS: BP 127/62; PULSE 58; RESP 15; O2SAT 98
[2024-12-30 04:17] LABS: Hematocrit 34.6 % (36-47); Hemoglobin 11.70 g/dL (11.27-16.99); Mean Corpuscular HGB Conc 33.8 g/dL (30-55); Mean Corpuscular Hemoglobin 32.9 pg (27-33); Mean Corpuscular Volume 97.2 fl (85-98); Nucleated Red Blood Cells % 0 %; Platelet Count 207 10^3/cmm (157-399); Red Blood Count 3.56 10^6/uL (3.85-5.65); White Blood Count 13.52 10^3/uL (3.29-11.43)
[2024-12-30] MEDS: multivitamin therapeutic Tablet 1 TAB PO (04:19)
[2024-12-30] MEDS: calcium carb-vit d 600mg/400unit 1 Tablet 1 EACH PO (04:19)
[2024-12-30] MEDS: chlorhexidine gluconate 0.12% Btl 473 mL 30 ML MUCOUS MEM ×2 (04:29→11:00)
[2024-12-30 04:37] LABS: Anion Gap 11.2 (5-19); Blood Urea Nitrogen 8 mg/dL (6-20); Calcium 9.0 mg/dL (8.5-10.5); Carbon Dioxide 26 mmol/L (22-29); Chloride 106 mmol/L (98-107); Creatinine Clr Calc Pharmacy 117.3092; Glucose 111 mg/dL (65-115); Osmolality Calculated 287 mOsm/kg (285-295); Potassium 4.2 mmol/L (3.5-5.1); Sodium 139 mmol/L (136-145)
[2024-12-30 08:30] VITALS: RESP 16; O2SAT 97
[2024-12-30] MEDS: APIXABAN 2.5 MG TABLET PO (08:30)
[2024-12-30 10:08] VITALS: BP 139/64; PULSE 59; RESP 16; TEMP 36.4; O2SAT 96
--- NOTE | 2024-12-30 12:10 | P.PN_ITS ---
Subjective 2 Subjective: Patient was seen this morning, currently alert oriented x 3, following all commands, has no pain complaints, she plans on going home, she tells me that her is building her on a ramp for her at home Vitals/I&O/Wt Last Vital Signs Temp 97.6 F 12/30/24 10:08 Pulse 59 L 12/30/24 10:08 Resp 16 12/30/24 10:08 BP 139/64 12/30/24 10:08 Pulse Ox 96 12/30/24 10:08 O2 Del Method Room Air 12/30/24 10:08 O2 Flow Rate 6 12/29/24 11:03 12/29/24 12/30/24 12/30/24 22:59 06:59 14:59 Intake Total 150 / 1500 888.333 / 2388.333 823.333 / 823.333 Output Total 650 / 1375 1650 / 3025 Balance -500 / 125 -761.667 / -636.667 823.333 / 823.333 Weight last 48 hrs Weight 74.843 kg Weight 74.843 kg Physical Exam 2 Const: COMMON NORMALS: no acute distress and patient oriented x3 Resp: COMMON NORMALS: normal respiratory effort, No retractions, No use of accessory muscles and clear to auscultation bilaterally AUSCULTATION: clear to auscultation bilaterally Cardio: COMMON NORMALS: regular rate, regular rhythm, S1 normal heart sound present and S2 normal heart sound present RATE: regular rate RHYTHM: r egular rhythm HEART SOUNDS: S1 normal heart sound present and S2 normal heart sound present GI: COMMON NORMALS: Normal to inspection, nondistended, normoactive bowel sounds present and non-tender Extremity: COMMON NORMALS: no pedal edema Neuro: COMMON NORMALS: patient oriented x3 and moves all extremities Psych: COMMON NORMALS: mental status grossly normal Skin: NARRATIVE SKIN EXAM: Surgical site looks clean and dry Urinary Catheter Management: Thibodeaux: Cath Placed During This Visit: yes, but has since been removed by the nurse Reason for Continuing Indwelling Catheter: Decision to DC Catheter Urinary Catheter Date of Insertion: 12/29/24 Urinary Catheter Time of Insertion: 08:57 Date Urinary Catheter Removed: 12/29/24 Time Urinary Catheter Discontinued: 19:12 Data 12/30/24 04:10 12/30/24 04:10 A&P Assessment and plan 1. Chondromalacia of knee: 2. Status post arthroscopy of left knee: 3. Status post total knee replacement, left: 4. History of hypertension: Plan: Status post left total knee - Pain control and anticoagulation as per orthopedic team History of blood pressure Resume home medications GI and DVT prophylaxis in place PDMP PDMP Reviewed: Not Reviewed Attestations 2 Medical Necessity Statement*: Patient will be discharged today Diagnoses Chondromalacia of knee M94.269 Status post arthroscopy of left knee Z98.890 Status post total knee replacement, left Z96.652 History of hypertension Z86.79
[2024-12-30 12:47] VITALS: RESP 18; O2SAT 97
--- NOTE | 2024-12-30 12:51 | P.DS_ITS ---
Discharge Providers Date of Admission: 12/29/24 13:16 Date of Discharge: December 30, 2024 Attending Provider at Admission: Scott Lowery DO Attending Provider at Discharge: Scott Lowery DO Consults: hospitalist Primary Care Provider: PHAN Núñez Diagnoses at Discharge Discharge Diagnosis 1. Status post total knee replacement, left: 2. Chondromalacia of knee: 3. Status post arthroscopy of left knee: 4. History of hypertension: Reason for Visit Reason for Visit: M17.12 Brief History: Status post left total knee arthroplasty?Arturo robotic assisted Hospital Course Hospital Course Patient presented to the preoperative holding area with plan for left total knee arthroplasty after patient has been worked up in the outpatient setting for failed conservative treatment of [left] knee degenerative joint disease. Once cleared by anesthesia for surgery patient subsequently was taken back to the operative suite underwent anesthesia per anesthesia department and then subsequently underwent a [left] total knee arthroplasty. Procedure was performed without any complications patient was taken to PACU in stable condition patient recovered well in PACU and then was admitted to the floor postoperatively internal medicine was consulted and on board for medical management and assistance with care. Patient received appropriate PT/OT, postoperative antibiotics, postoperative TXA, pain control, postoperative DVT prophylaxis. Elevation and ice. Patient encouraged for knee range of motion allowed weightbearing as tolerated to the operative lower extremity. Dressing was changed as needed, labs were monitored daily. Patient recovered well postoperatively and worked well and progressed well with therapy. It was determined on postoperative day 1 the patient was stable for discharge from an orthopedic standpoint and medicine. Patient was comfortable with discharge and plan was discharged home. Patient received appropriate discharge instructions as well as pain medication and DVT prophylaxis postoperatively. Given appropriate instructions for dressing management. Patient will follow-up with Dr. Lowery/orthopedics in the office in 2 weeks. All questions answered. Understand if there is any issues questions or concerns and contact the office. Physical Exam Narrative: Left knee examination: Dressing on in place, clean dry and intact. No evidence of saturation. Patient has normal postoperative swelling and tenderness to palpation to the knee. Compartments are soft compressible,'s calf soft and nontender. Sensations intact to light touch distally. Distal pulses are palpable. Patient is able to wiggle toes as well as plantarflex and dorsiflex ankle. Urinary Catheter Management: Thibodeaux: Cath Placed During This Visit: yes, but has since been removed by the nurse Reason for Continuing Indwelling Catheter: Decision to DC Catheter Urinary Catheter Date of Insertion: 12/29/24 Urinary Catheter Time of Insertion: 08:57 Date Urinary Catheter Removed: 12/29/24 Time Urinary Catheter Discontinued: 19:12 Discharge Data Studies Completed and Pending Completed Studies During Hospitalization Category Date Time Status XR knee LT 1-2V [id number] Routine Exams 12/29/24 07:11 Completed Pending at discharge Category Date Time Status Basic Metabolic Panel AM LABS Lab 12/31/24 04:00 Ordered Basic Metabolic Panel AM LABS Lab 01/01/25 04:00 Ordered Complete Blood Count w/Auto AM LABS Lab 12/31/24 04:00 Ordered Complete Blood Count w/Auto AM LABS Lab 01/01/25 04:00 Ordered Radiology Impressions Knee X-Ray 12/29/24 07:11 Impression: Left knee arthroplasty. Laboratory Results WBC 13.52 10^3/uL (3.29-11.43) H 12/30/24 04:10 RBC 3.56 10^6/uL (3.85-5.65) L 12/30/24 04:10 Hgb 11.70 g/dL (11.27-16.99) 12/30/24 04:10 Hct 34.6 % (36-47) L 12/30/24 04:10 MCV 97.2 fl (85-98) 12/30/24 04:10 MCH 32.9 pg (27-33) 12/30/24 04:10 MCHC 33.8 g/dL (30-55) 12/30/24 04:10 RDW 12.0 % (12.1-15.1) L 12/30/24 04:10 Plt Count 207 10^3/cmm (157-399) 12/30/24 04:10 MPV 11.1 fL (7.4-10.4) H 12/30/24 04:10 Neut % (Auto) 81.2 % 12/30/24 04:10 Lymph % (Auto) 13.2 % 12/30/24 04:10 Roosevelt % (Auto) 5.0 % 12/30/24 04:10 Eos % (Auto) 0.1 % 12/30/24 04:10 Baso % (Auto) 0.1 % 12/30/24 04:10 Neut # (Auto) 10.96 10^3/uL (1.8-7.7) H 12/30/24 04:10 Lymph # (Auto) 1.8 10^3/uL (0.8-4.8) 12/30/24 04:10 Roosevelt # (Auto) 0.7 10^3/uL (0.2-0.9) 12/30/24 04:10 Eos # (Auto) 0.0 10^3/uL (0.0-0.8) 12/30/24 04:10 Baso # (Auto) 0.0 10^3/uL (0.0-0.1) 12/30/24 04:10 Nucleated RBC % (auto) 0 % 12/30/24 04:10 Nucleated RBCs # 0.0 /100WBC 12/30/24 04:10 Sodium 139 mmol/L (136-145) 12/30/24 04:10 Potassium 4.2 mmol/L (3.5-5.1) 12/30/24 04:10 Chloride 106 mmol/L (98-107) 12/30/24 04:10 Carbon Dioxide 26 mmol/L (22-29) 12/30/24 04:10 Anion Gap 11.2 (5-19) 12/30/24 04:10 BUN 8 mg/dL (6-20) 12/30/24 04:10 Creatinine 0.6 mg/dL (0.5-0.9) 12/30/24 04:10 GFR Calculation 106.3 mL/min (90-130) 12/30/24 04:10 Glucose 111 mg/dL (65-115) 12/30/24 04:10 Calculated Osmolality 287 mOsm/kg (285-295) 12/30/24 04:10 Calcium 9.0 mg/dL (8.5-10.5) 12/30/24 04:10 Blood Type O Positive 12/29/24 07:15 Rho(D) Type Rh positive 12/29/24 07:15 Antibody Screen Negative 12/29/24 07:15 Vitals Last Vital Signs Temp 97.6 F 12/30/24 10:08 Pulse 59 L 12/30/24 10:08 Resp 18 12/30/24 12:47 BP 139/64 12/30/24 10:08 Pulse Ox 97 12/30/24 12:47 O2 Del Method Room Air 12/30/24 10:08 O2 Flow Rate 6 12/29/24 11:03 Discharge Plan Discharge Patient Disposition: Home Condition: Stable Prescriptions: New Eliquis 2.5 mg tablet 2.5 mg PO BID 14 Days Qty: 28 0RF calcium carbonate-vitamin D3 [Calcium 600 + D(3)] 600 mg-10 mcg (400 unit) tablet 1 tab PO DAILY 30 Days Qty: 30 0RF cefadroxil 500 mg capsule 500 mg PO BID 7 Days Qty: 14 0RF oxycodone 5 mg tablet 5 mg PO Q6H PRN (Reason: pain postop) 7 Days Qty: 28 0RF Continued fluoxetine [Prozac] 40 mg capsule 60 mg PO DAILY alprazolam 0.5 mg tablet 0.5 mg PO DAILY PRN (Reason: Anxiety) tizanidine 4 mg capsule 4 mg PO Q6H PRN (Reason: Pain) levothyroxine 125 mcg tablet 100 mcg PO QDAY metoprolol succinate 25 mg tablet extended release 24 hr 50 mg PO DAILY milk thistle 150 mg capsule 150 mg PO BID Rx Instructions: give with meal/snack omega [id number]-fish oil [Fish Oil] 60-90-500 mg capsule 1 cap PO DAILY Botox 100 unit recon soln 155 unit IM Q90D Qty: 2 3RF Rx Instructions: Inject 155units IM-31 sites, 5 units/site per FDA protocol tramadol 50 mg tablet 50 mg PO Q6H PRN (Reason: pain, mild) 5 Days Qty: 20 0RF Director Engineering OK for DC: Orthopedics Discharge Order = DC NOW: Discharge Order (Routine); Ordered 12/30/24 Ordered By: Scott Lowery Referrals: Velasquez Lowery PA [Physician Seamer Operator, Orthopedics] - 01/13/25 1:30 pm Discharge Diet: Regular Discharge Activity: Limit activity as instructed and Use walker/crutches as instructed Patient Instructions: Cefadroxil (By mouth), Ondansetron (By mouth) (Zofran, Zofran ODT, Zuplenz), Oxycodone, Slow Release (By mouth), Apixaban (By mouth) (Eliquis), Acute Wound Care (DC), Precautions after Total Joint Replacement Surgery (DC), Total Knee Replacement (DC), Opioid Safety, Post Anesthesia Care, Patient Portal & Jonah Instructions Activity Restrictions/Additional Instructions: Orthopedic discharge instructions keep incisions clean dry and intact, remove Rodolfo bandage and dressing down to the Silverlon dressing after 72 hours May loosen and change Rodolfo wrap sooner if needed leave Silverlon bandage dressings on in place for 7 days after that may rinse incisions with warm soapy water pat dry and redress with a dry dressing/new Silverlon dressing Patient may weight-bear as tolerate to the operative extremity Utilize walker as needed Encourage knee range of motion Ice and elevate as needed for pain and swelling Take pain medication as prescribed Take antinausea medication as needed Take antibiotic as prescribed for infection prophylaxis Supplement with calcium vitamin D for bone health and healing Pain medication can cause constipation. take [id number] stool softeners and or MiraLAX. Take prescribed Eliquis twice daily for the next 14 days for blood clot prevention May supplement for pain with Tylenol [id number] as needed(1000 mg every 8 hours-do not exceed more than 3000mg in 24-hour period) No baths or soaks Follow-up in the orthopedic office in 2 weeks Contact the office for any questions or concerns Discharge Attestations Time Spent in Discharge Care*: less than 30 min Quality Metrics Clinical Quality Measures [ No reported AMI, CVA or VTE this stay] Coding Level of Care Code Acute Code for Chg Fwd Diagnoses Status post total knee replacement, left Z96.652 Chondromalacia of knee M94.269 Status post arthroscopy of left knee Z98.890 History of hypertension Z86.79
[2024-12-30 14:30] VITALS: BP 124/71; PULSE 69; RESP 16; TEMP 36.6; O2SAT 95
== END 2024-12-30 14:30 | disposition home or self-care (01) ==
LOC: OBGYN 12-30 07:57 → OR 12-30 08:04
PROVIDERS: Physician Assistant; Admitting Provider Student in an Organized Health Care Education/Training Program; PCP Nurse Practitioner Family; Visit Provider Student in an Organized Health Care Education/Training Program
PROC: 8E0Y0CZ Robotic Assisted Procedure of Lower Extremity, Open Approach (ICD-10-PCS; CPT 27447; principal; 2024-12-29 09:20)
DX: M17.12 Unilateral primary osteoarthritis, left knee (principal); F17.210 Nicotine dependence, cigarettes, uncomplicated; M94.262 Chondromalacia, left knee; E03.9 Hypothyroidism, unspecified
CPT/HCPCS: 27447; 20985; 36415; 51702; 73560; 80048; 85025; 86850; 86900; 97110; 97116; 97161; 97165; A4216; C1713; C1776; G0378; J0131; J0169; J0690; J1885; J2250; J2405; J2704; J2795; J7030; J7120; J9999; L8699

== ENCOUNTER → 2025-01-13 13:37 | Outpatient (BNVA) | payer OTHER, SELFPAY | PROVIDERS: PCP Nurse Practitioner Family; Visit Provider Physician Assistant | DX: Z98.890 Other specified postprocedural states (principal); Z96.652 Presence of left artificial knee joint | CPT/HCPCS: 73560; 73565 ==

== ENCOUNTER → 2025-02-24 13:01 | Outpatient (BNVA) | payer OTHER, SELFPAY | PROVIDERS: PCP Nurse Practitioner Family; Visit Provider Physician Assistant | DX: Z98.890 Other specified postprocedural states (principal); Z96.652 Presence of left artificial knee joint | CPT/HCPCS: 73560; 73565 ==